=== PATIENT | female | born 1980 | race Hispanic/Latino ===

== ENCOUNTER 2017-06-05 22:54 | Emergency (ER) | payer OTHER ==
[2017-06-05 23:29] LABS: BASOPHILS % (AUTO) 0.6 % (0.0-5.0); HEMATOCRIT 34.3 % (36-48); LYMPHOCYTES % (AUTO) 33.4 % (21.0-51.0); MEAN CORPUSCULAR HEMOGLOBIN 26.6 pg (27.0-33.0); MEAN CORPUSCULAR VOLUME 80.5 fL (79-99); MONOCYTES % (AUTO) 7.8 % (3.0-13.0); NEUTROPHILS % (AUTO) 56.2 % (40.0-77.0); PLATELET COUNT (AUTO) 276 K/uL (130-400); RED BLOOD CELL COUNT(AUTO) 4.26 MIL/uL (4.00-5.50); RED CELL DISTRIBUTION WIDTH 15.4 % (11.0-15.5); WHITE BLOOD COUNT (AUTO) 9.5 K/uL (4.8-10.8)
[2017-06-05 23:38] LABS: CARBON DIOXIDE 27 mmol/L (21-32); CHLORIDE 106 mmol/L (101-111); CREATININE 0.7 mg/dL (0.5-1.5); GLOMERULAR FILTR. RATE CALC 100 mL/min (>60); GLUCOSE,RANDOM 116 mg/dL (70-105); POTASSIUM 4.4 mmol/L (3.5-5.1); SODIUM SERUM 140 mmol/L (136-145); UREA NITROGEN, BLOOD 12 mg/dL (7-18)
[2017-06-05 23:48] LABS: INR 0.92 (0.85-1.15); PARTIAL THROMBOPLASTIN TIME 23.7 SEC (26.3-35.5); PROTHROMBIN TIME 9.7 SEC (9.6-11.6)
[2017-06-05 23:52] LABS: ALANINE AMINOTRANSFERASE 27 U/L (12-78); ALBUMIN 3.2 g/dL (3.5-5.0); ASPARTATE AMINOTRANSFERASE 30 U/L (10-37); BILIRUBIN,TOTAL 0.2 mg/dL (0.2-1.0); CREATINE KINASE MB < 0.5 ng/mL (0.5-3.6); CREATINE KINASE, TOTAL 115 U/L (21-232); MYOGLOBIN 20 ng/mL (10-92); TOTAL PROTEIN, SERUM 7.3 g/dL (6.0-8.3)
== END 2017-06-06 01:48 | disposition home or self-care (01) ==
LOC: EDH 22:54
DX: R20.2 Paresthesia of skin (principal); R79.1 Abnormal coagulation profile; Z79.899 Other long term (current) drug therapy; Z98.890 Other specified postprocedural states
CPT/HCPCS: 36415; 70450; 71045; 80053; 82550; 82553; 83874; 84484; 85025; 85610; 85730; 93005; 94761

== ENCOUNTER 2018-02-13 15:30 | Inpatient (IN) | payer OTHER, BC ==
[~2018-02-13] VITALS: Ht 162.6 cm; Wt 117.5 kg
[~2018-02-13 15:30] MED LIST: PREN1TAB89 PO; VITA1CAP PO
[2018-02-13 17:55] LABS: PLATELET COUNT (AUTO) 278 K/uL (130-400)
[2018-02-13 18:01] LABS: HEMATOCRIT 32.7 % (36-48); MEAN CORPUSCULAR HEMOGLOBIN 26.4 pg (27.0-33.0); MEAN CORPUSCULAR VOLUME 80.1 fL (79-99); NUCLEATED RED BLOOD CELLS 0.1 % (0.0-0.19); RED BLOOD CELL COUNT(AUTO) 4.09 MIL/uL (4.00-5.50); RED CELL DISTRIBUTION WIDTH 15.2 % (11.0-15.5); WHITE BLOOD COUNT (AUTO) 8.5 K/uL (4.8-10.8)
[2018-02-14] VITALS (19 sets, daily range): BP systolic 89–132; BP diastolic 35–71
[2018-02-14] MEDS ORDERED: LACTATED RINGERS 1000ML 1,000 ML IV SCH (05:45)
[2018-02-14] MEDS ORDERED: CEFAZOLIN SODIUM 1 GM VIAL IVP PRN (05:45)
[2018-02-14] MEDS ORDERED: CALDOLOR 800MG+NS 250ML 250 ML IV PRN (05:45)
[2018-02-14] MEDS ORDERED: ONDANSETRON HCL 4 MG/2 ML VIAL ONE ×3 (09:08→13:40)
[2018-02-14] MEDS ORDERED: OXYTOCIN-LR 20 UNITS/1000 ML 1,000 ML IV PRN (09:20)
[2018-02-14] MEDS ORDERED: LANOLIN 30GM OINTMENT TP PRN (09:30)
[2018-02-14] MEDS ORDERED: HYDROCODONE/ACETAMINOPHEN 5/325 MG TAB PO PRN ×2 (09:30)
[2018-02-14] MEDS ORDERED: BISACODYL 10 MG SUPP.RECT RC PRN (09:30)
[2018-02-14] MEDS ORDERED: DIPHENHYDRAMINE HCL 25 MG CAPSULE PO PRN (09:30)
[2018-02-14] MEDS ORDERED: ACETAMINOPHEN-CODEINE 300/30MG TAB PO PRN (09:30)
[2018-02-14] MEDS ORDERED: SODIUM CHLORIDE 0.9% 10 ML VIAL IVP PRN (09:30)
[2018-02-14] MEDS: IBUPROFEN 800 MG TAB PO SCH ×2 (09:30→17:30)
[2018-02-14] MEDS ORDERED: ACETAMINOPHEN EXTRA STRENGTH 500 MG TABLET PO PRN (09:30)
[2018-02-14] MEDS ORDERED: DEXTROSE 5 %-0.45 % NACL 1,000 ML IV PRN (09:30)
[2018-02-14] MEDS ORDERED: PROMETHAZINE HCL 25 MG/ML 1ML AMPULE IM PRN (09:30)
[2018-02-14] MEDS ORDERED: DIPH,PERTUSS(ACELL),TET VAC/PF 0.5 ML VIAL IM SCH (09:30)
[2018-02-14] MEDS ORDERED: MEASLES/MUMPS/RUBELLA VACCINE, LIVE 0.5 ML/VIAL SQ SCH (09:30)
[2018-02-14] MEDS ORDERED: MEPERIDINE-PF 75 MG/ML SYG IM PRN (09:30)
[2018-02-14] MEDS ORDERED: METOCLOPRAMIDE 10 MG/2 ML VIAL ONE ×2 (10:14→17:00)
[2018-02-14] MEDS ORDERED: FERR-82 PO (11:07)
[2018-02-14] MEDS ORDERED: OXYTOCIN 10 USP UNITS/ML ONE ×2 (11:24→17:32)
[2018-02-14] MEDS: CALDOLOR 800MG+NS 250ML 250 ML IV SCH (17:37)
[2018-02-14] MEDS: DOCUSATE SODIUM 100 MG CAP PO SCH (21:28)
[2018-02-14] MEDS: SIMETHICONE 80 MG TAB.CHEW PO PRN (21:28)
[2018-02-15] VITALS (7 sets, daily range): BP systolic 108–150; BP diastolic 54–109
[2018-02-15] MEDS: CALDOLOR 800MG+NS 250ML 250 ML IV SCH (01:19)
[2018-02-15] MEDS: IBUPROFEN 800 MG TAB PO SCH ×3 (01:30→17:09)
[2018-02-15 06:39] LABS: HEMATOCRIT 25.3 % (36-48); MEAN CORPUSCULAR HGB CONC 32.3 g/dL (32.0-36.0); MEAN CORPUSCULAR VOLUME 80.3 fL (79-99); PLATELET COUNT (AUTO) 204 K/uL (130-400); RED BLOOD CELL COUNT(AUTO) 3.15 MIL/uL (4.00-5.50); WHITE BLOOD COUNT (AUTO) 12.5 K/uL (4.8-10.8)
[2018-02-15 07:24] LABS: HEPATITIS Bs ANTIGEN SCREEN P Negative (Negative)
[2018-02-15] MEDS: DOCUSATE SODIUM 100 MG CAP PO SCH ×2 (09:16→21:32)
[2018-02-15] MEDS: SIMETHICONE 80 MG TAB.CHEW PO PRN ×3 (09:16→21:32)
[2018-02-15] MEDS: LIDOCAINE 5% TOPICAL PATCH TP SCH (09:16)
[2018-02-16] MEDS: IBUPROFEN 800 MG TAB PO SCH ×2 (01:14→08:25)
[2018-02-16 03:50] VITALS: BP 125/24
[2018-02-16 07:37] VITALS: BP 134/84
[2018-02-16] MEDS: DOCUSATE SODIUM 100 MG CAP PO SCH (08:25)
[2018-02-16] MEDS: SIMETHICONE 80 MG TAB.CHEW PO PRN (08:25)
[2018-02-16] MEDS: LIDOCAINE 5% TOPICAL PATCH TP SCH (08:26)
[2018-02-16 11:28] VITALS: BP 139/84
== END 2018-02-16 12:25 | disposition home or self-care (01) | DRG 785 ==
LOC: EDSTATUS 15:30 → LDH 02-14 05:35 → WSH 02-14 10:50
PROVIDERS: ADMIT Obstetrics & Gynecology; ATTEND Obstetrics & Gynecology
PROC: 0UB70ZZ Excision of Bilateral Fallopian Tubes, Open Approach (ICD-10-PCS; 2018-02-14)
PROC: 3E0234Z Introduction of Serum, Toxoid and Vaccine into Muscle, Percutaneous Approach (ICD-10-PCS; 2018-02-14)
PROC: 10D00Z1 Extraction of Products of Conception, Low, Open Approach (ICD-10-PCS; principal; 2018-02-14 07:00)
DX: O24.429 Gestational diabetes mellitus in childbirth, unspecified control (principal); O34.211 Maternal care for low transverse scar from previous cesarean delivery; O32.2XX0 Maternal care for transverse and oblique lie, not applicable or unspecified; O99.824 Streptococcus B carrier state complicating childbirth; O69.81X0 Labor and delivery complicated by cord around neck, without compression, not applicable or unspecified; Z3A.38 38 weeks gestation of pregnancy; Z37.0 Single live birth; Z30.2 Encounter for sterilization; Z23 Encounter for immunization
CPT/HCPCS: 36415; 59510; 85027; 86592; 86850; 86900; 86901; 87340; 88302; 90715; A4344; A4606; J0690; J1741; J2405; J2590; J2765; J7120